=== PATIENT | male | born 1965 | race Caucasian/White ===

== ENCOUNTER 2018-12-06 08:13 | Outpatient (CLI) | payer BC ==
[~2018-12-06 08:13] MED LIST: Iopamidol 370 76% 100 ML VIAL ONE
--- NOTE | 2018-12-06 10:09 | CT ---
CTA CHEST WITH AND WITHOUT CONTRAST: INDICATION: Mitral valve insufficiency. FINDINGS: Mild bilateral subpleural irregularity is seen. There is granulomatous calcification. No lobar cons olidation, effusion, or pneumothorax. Mild coronary artery calcium is seen. Incidental note of marked irregularity, hyperdensity, and thickening of the gallbladder wall. This w as incompletely evaluated. There is prominence of the partially imbed right renal pelvis with associ ated punctate calcification. The imaged thoracic aorta is nonaneurysmal. The pulmonary arteries are incompletely evaluated by the technique of this exam. IMPRESSION: 1. No acute abnormalities of the chest. 2. There is incidentally noted marked heterogeneity and prominence of the gallbladder, incompletely evaluated and incompletely visualized. Recommend gallbladder ultrasound to further evaluate. 3. Partially imaged prominence of the right renal hilar region with punctate nephrolithiasis. POS: ANTHONY
== END 2018-12-06 08:14 | disposition home or self-care (01) ==
LOC: CT 08:13
PROVIDERS: ATTEND Internal Medicine Cardiovascular Disease
DX: I35.1 Nonrheumatic aortic (valve) insufficiency (principal); N20.0 Calculus of kidney
CPT/HCPCS: 71275; Q9967